=== PATIENT | male | born 1945 | race Caucasian/White ===

== ENCOUNTER 2019-04-27 08:50 | Outpatient (CLI) | payer MEDICARE, BC, SELFPAY ==
--- NOTE | 2019-04-27 11:00 | CT_ITS ---
WS: [id number] CT ABDOMEN AND PELVIS NONCONTRAST HISTORY: VENTRAL HERNIA TECHNIQUE: Imaging performed through the abdomen and pelvis. Coronal and sagittal reformats are submi tted. All CT scans at [facility] use at least one of these dose optimization techniques: automated exposure control; mA and/or kV adjustment per patient size (includes targeted exams where d ose is matched to clinical indication); or iterative reconstruction. DLP: 1204.16 mGycm COMPARISON: None available. Lower thorax: Benign granuloma at the RIGHT lung base. Heart size is normal. Moderate size hiatal her tanvi. Liver: Mild hepatic steatosis. No mass or bile duct dilatation. Gallbladder: Status post cholecystectomy. Pancreas: Normal. Spleen: Normal. Adrenal glands: Normal. Right kidney: Mild perinephric stranding. Increased renal sinus fat. No mass or obstruction. Left kidney: Mild perinephric stranding. Both circumscribed mass measures 2.7 x 3.1 cm from the lower pole consistent with a cyst. Increase in the sinus fat of the kidney. No obstruction. Mild atherosclerosis with no aneurysm. No free fluid, intraperitoneal air or significant lymphadenopathy. GI tract: Postsurgical changes of gastric bypass. No GI tract obstruction. The appendix is normal. Th ere are a few scattered diverticula in the sigmoid colon with no acute diverticulitis. Abdominal wall: Ventral abdominal wall hernia measures 3.5 cm. Hernia contains fat only. Pelvis: Inguinal canals are patent bilaterally containing fat only. No free fluid or adenopathy in th e pelvis. Very slightly heterogeneous prostate gland with no enlargement. Normal urinary bladder. Osseous structures: Mild narrowing of the SI joints. CT/CT abdomen pelvis wo con [id number] IMPRESSION: 1. Small fat-containing umbilical hernia. 2. Atherosclerosis aorta. 3. Prior cholecystectomy. 4. Small hiatal hernia. 5. Prior gastric bypass.
== END 2019-04-27 08:51 | disposition home or self-care (01) ==
LOC: RADWPI 09:05
PROVIDERS: Family Provider Physician Assistant; PCP Student in an Organized Health Care Education/Training Program; Visit Provider Surgery
DX: K43.9 Ventral hernia without obstruction or gangrene (principal); I70.0 Atherosclerosis of aorta; K44.9 Diaphragmatic hernia without obstruction or gangrene; Z98.84 Bariatric surgery status
CPT/HCPCS: 74176

== ENCOUNTER → 2020-11-15 11:08 | Outpatient (BNVA) | payer MEDICARE, BC, SELFPAY | PROVIDERS: Family Provider Physician Assistant; PCP Student in an Organized Health Care Education/Training Program; Visit Provider Surgery | DX: Z20.822 Contact with and (suspected) exposure to COVID-19 (principal); K43.9 Ventral hernia without obstruction or gangrene | CPT/HCPCS: 87635 ==

== ENCOUNTER 2020-11-19 06:38 | Day surgery (SDC) | payer MEDICARE, BC, SELFPAY ==
[2020-11-18 14:51] VITALS: BMI 34.0
[2020-11-19] VITALS (11 sets, daily range): BP systolic 135–165; BP diastolic 76–101; PULSE 83–106; RESP 14–21; TEMP 36.4–36.6; O2SAT 90–97
[2020-11-19] MEDS: acetaminophen 1,000 MG/100 ML PIGGYBACK 400 MG IV (07:10)
[2020-11-19] MEDS: sodium chloride 0.9% 1,000 ML 30 ML IV (07:10)
[2020-11-19] MEDS: heparin 5,000 unit/mL INJ 1 mL 3000 UNIT SUBCUT (07:25)
--- NOTE | 2020-11-19 07:30 | ANES.PREANE2 ---
Pre-Anesthetic Assessment Pre-Anesthetic Assessment: Height/Weight: Height 1.88 m Weight 120.202 kg Temp Pulse Resp BP Pulse Ox 97.6 F 88 18 146/78 97 11/19/20 06:55 11/19/20 06:55 11/19/20 06:55 11/19/20 06:55 11/19/20 06:55 Preop Diagnosis: Ventral incisional hernia Proposed Procedure: Operation Date: 11/19/20 08:15 Proposed Procedures p Laparoscopic Ventral Hernia Repair w/ Mesh 35281 K43.9(Not Applicable) - Yasir Lao MD Was Beta Kade taken within 24 hours: N/A Was Clonidine taken within 24 hours: N/A Last intake: Intake Last Liquid Date 11/18/20 Last Liquid Time 22:00 Last Solid Date 11/18/20 Last Solid Time 18:30 Social: Social History: No alcohol and No tobacco Exam: Pre-Anes Outpt Exam: alert, oriented x 3, clear to auscultation bilaterally and regular rate & rhythm Airway: Submandibular: WNL Cervical ROM: WNL MP: 3 Dentition: Full GI: GI: GERD Metabolic: Metabolic: DM, Hyperlipidemia and Morbid obesity Anesthetic Plan: ASA status: 3 Anesthesia: General Risk of > 500 ml blood loss (7ml/kg in children): No PFSH Anesthesia PFSH: Medical History GERD (gastroesophageal reflux disease) Obesity Osteoarthritis Umbilical hernia Surgical History History of Maci-en-Y gastric bypass (~2018) Family History Denies family history of Anesthesia complication Bleeding disorder Social History Smoking and tobacco status: never smoked Second hand smoke exposure: No Alcohol intake: never Adopted: No Caregiver/support person: Yes Lives independently: Yes Household members: none Housing: House Marital status: Single Highest education level completed: High School Graduate service: No Current occupational status: retired Current occupational exposures/hazards: No Pets and animals: Yes Pets & animals: dog(s) History of recent travel: No Sexually active: No Current gender identity: Male Orin/Rastafari: Islam Special orin needs: No Agree to transfusion: No Financial difficulty paying for basics: Decline to Answer Data Anesthesia Cardiac Studies: No Data to Display
[2020-11-19 07:31] LABS: Glucose Point of Care 118 mg/dL (70-110)
--- NOTE | 2020-11-19 07:41 | W.PM.OPSFHP ---
Same Day Surgery H&P Indication for Procedure/HPI DATE OF PROCEDURE: November 19, 2020 CHIEF COMPLAINT/INDICATIONFOR SURGICAL PROCEDURE: My hernia is bothering PREOP DIAGNOSIS: Ventral incisional hernia PLANNED PROCEDRUE: Operation Date: 11/19/20 08:15 Proposed Procedures p Laparoscopic Ventral Hernia Repair w/ Mesh 18361 K43.9(Not Applicable) - Yasir Lao MD This is a pleasant 75 years old gentleman well-known to me from previous clinical encounters as he has been having worsening symptoms with his ventral incisional hernia. He did postpone his surgery before because of COVID-19 and now is willing to proceed accordingly. Is a status post laparoscopic Maci-en-Y gastric bypass that was done years ago in [place]. Prior CT scan of the abdomen pelvis was done in March 2019 that showed 1. Small fat-containing umbilical hernia. 2. Atherosclerosis aorta. 3. Prior cholecystectomy. 4. Small hiatal hernia. 5. Prior gastric bypass. Interim history 11/19/2020 Patient comes today for elective laparoscopic ventral hernia repair with mesh placement ROS All systems have been reviewed negative except as per the above or per problem list Medications/Allergies* Home Medications Medication Instructions Recorded Confirmed Type lovastatin 10 mg tablet 10 mg PO QDAY 04/17/19 11/19/20 History omeprazole 40 mg capsule,delayed 40 mg PO QDAY 04/17/19 11/19/20 History release metformin 500 mg PO DAILY 11/18/20 11/19/20 History Allergies/Adverse Reactions Allergy/AdvReac Type Severity Reaction Status Date / Time NSAIDS (Non-Steroidal Allergy Unknown Unknown Verified 11/19/20 07:49 Anti-Inflamma contrast media Allergy Unknown Unknown Uncoded 11/19/20 07:49 Pertinent History/Comorbid Conditions* Medical History (Updated 10/16/19 @ 10:50 by Yasir Lao MD) GERD (gastroesophageal reflux disease) Obesity Osteoarthritis Umbilical hernia Surgical History (Updated 05/17/19 @ 16:13 by Yaisr Lao MD) History of Maic-en-Y gastric bypass (~2017) Family History (Updated 04/14/19 @ 15:20 by Zakiya Alexandra RN) Denies family history of Anesthesia complication Bleeding disorder Social History Smoking and tobacco status: never smoked Second hand smoke exposure: No Alcohol intake: never Adopted: No Caregiver/support person: Yes Lives independently: Yes Household members: none Housing: House Marital status: Single Highest education level completed: High School Graduate service: No Current occupational status: retired Current occupational exposures/hazards: No Pets and animals: Yes Pets & animals: dog(s) History of recent travel: No Sexually active: No Current gender identity: Male Orin/Pentecostalism: Adventism Special orin needs: No Agree to transfusion: No Financial difficulty paying for basics: Decline to Answer Pertinent Exam Findings alert, oriented x 3, clear to auscultation bilaterally, regular rate & rhythm and procedure specific exam findings (Partially reducible ventral incisional hernia otherwise abdominal exam is u) Abdominal examination is unremarkable apart from the ventral incisional hernia Recommendations Surgery/Procedure today (Laparoscopic ventral incisional hernia repair with mesh possible open) Coding Level of Care Code Acute Sensor Specialist for Kenan Mccullough
[2020-11-19] MEDS: ceFAZolin 3,000 MG in sodium chloride 0.9% (100 ml) 100 ML 200 MG IV (07:59)
--- NOTE | 2020-11-19 09:45 | PM.OP ---
Operative Report Date of procedure: November 19, 2020 Pre-op Diagnosis: Ventral incisional hernia Post-op diagnosis: same Post-op Diagnosis: Periumbilical fascial defect 5 x 5 cm Post-op Findings: Fascial defect 5 x 5 cm at the periumbilical area Fascia noticed to be very attenuated Procedure Done: Laparoscopic ventral incisional hernia repair with mesh placement Implants: 15 x 15 cm ventral light mesh using echo system Surgeon: Yasir Lao Web Site Developer: Surgical techs Jeaneth Alvarez Circulating nurse Naomie Walls Estimated blood loss (mL): 15 IV fluids (mL): 750 Urine output (mL): 150 Condition: stable Disposition: same day Brief History: Symptomatic ventral incisional hernia Procedure: Patient was brought to the operating room after appropriate preoperative identification at the holding area. Was placed in supine position, Martin catheter was administered by myself revealing clear urine. General endotracheal anesthesia was administered the patient was intubated without incident. Timeout was done verifying the patient's name/date of /planned procedure and destination after the procedure, all were in agreement. SCDs confirmed to be functioning, preoperative antibiotics administered per protocol and heparin subcutaneous on-call to the OR, and beta rashmi protocol was confirmed, appropriate positioning of the patient was done by me.Patient was secured appropriately to the table and all pressure points were padded. Both arms were tucked. Prep and drape of the abdomen was done under the usual sterile technique. After Injection of Exparel An incision was made in the left upper subcostal margin along the left anterior axillary line of the abdomen , 5 mm Opti-Vu trocar was used with a 0 scope 5 mm under direct visualization safe entrance to the abdomen was achieved and all through abdominal wall layers. The abdomen was insufflated to 15 mmHg at 40 L/m , abdomen was surveyed showing no signs of injuries yet there were extensive intra-abdominal adhesions towards the midline, followed by placement of 12 mm trocar under direct visualization about a handbreadth inferior to first trocar, followed by another 5 mm trocar inserted 1 handbreadth inferior to the 10 mm trocar. Omental adhesions were carefully lysed using monopolar energy, fascial defect measured about 5 cm in diameter, at this point I decided to apply [id number] PDS sutures using the fascial closure device to approximate the edges of the defect. Closure was done while the pressure was dropped to 12 mm HG. At that point the Bard system ventral light ST mesh with echo positioning system was then decided upon having about 5 cm overlap from the fascial defect edge. Diameter of the mesh was about 15 cm. The mesh was rolled the and introduced through the 12 mm trocar, using a fascial closure device that was introduced through the center of the defect percutaneously, the Ethibond suture connected to the Echo system, was then brought ex vivo, the suture was then pulled towards the ceiling, and brought the mesh onto the fascial defect. At this point the mesh was adjusted found to be in a good position with good overlap, no trans-fascial sutures were used at this point, an absorbable Tack fixation device, performing a single crown technique to secure the mesh in place, after the first line of tacks were applied the skeleton and frame of the Echo system was brought out from the 12 mm trocar site , and the second row of tacks were applied to have a double crown configuration. Hemostasis was secured, there was some evidence of bleeding at the north part of the mesh so I elected to put a figure of 8 laparoscopic placed 2-0 silk stitch for hemostasis, the mesh appears to be in good position and well spread without crumbling. Bilateral TAP (transversus abdominous plain peripheral nerve block )block using Exparel 20 mL Exparel 40 ml Normal saline 20 ml bupivacaine 0.25% 30 mL on each side injected 20 mL injected the port sites Closure of the 12 mm trocar site, using interrupted V PDS sutures under direct visualization. Final look laparoscopy showed no bleeding or injury or succus. Trocars were then taken out under direct visualization and gas was allowed to escape.followed by subcuticular closure for all trocar sites, including the fascial closure device site at the center of the fascial defect, Dermabond about was applied. Martin catheter was taken out Patient tolerated the procedure well, and an abdominal binder was then wrapped around the patient's abdomen. The patient was then extubated and taken to the recovery room in stable condition All count of instruments and sponges were completed I Was present for the whole entire procedure
--- NOTE | 2020-11-19 10:03 | PM.PACU ---
PACU note PACU note: VSS, Good respiratory effort, report to COMMUNITY ASSISTANT Post-Anesthesia Exam: awake
--- NOTE | 2020-11-19 10:03 | P.PCN_ITS ---
PACU note PACU note: VSS, Good respiratory effort, report to RODEO PERFORMER Post-Anesthesia Exam: awake
[2020-11-19] MEDS: HYDROcodone-acetaminophen 5-325 mg Tablet 1 TAB PO (11:17)
--- NOTE | 2020-11-19 15:59 | ANE.PACU2 ---
Inpatient post-anesthesia follow up: Airway intact: Yes Vital signs: Temperature 97.7 F Pulse Rate 83 Respiratory Rate 16 Blood Pressure 151/91 Pulse Oximetry 97 Oxygen Delivery Me thod Room Air Oxygen Flow Rate 8 Fraction of Inspir ed Oxygen Hydration adequate: Yes Nausea and vomiting: No Pain level: 2 Mental status: Baseline
== END 2020-11-19 11:40 | disposition home or self-care (01) ==
PROVIDERS: PCP Family Medicine; Visit Provider Surgery
PROC: 0WQF4ZZ Repair Abdominal Wall, Percutaneous Endoscopic Approach (ICD-10-PCS; CPT 49654; principal; 2020-11-19 08:05)
DX: K43.2 Incisional hernia without obstruction or gangrene (principal); K21.9 Gastro-esophageal reflux disease without esophagitis; E66.01 Morbid (severe) obesity due to excess calories; Z68.34 Body mass index [BMI] 34.0-34.9, adult; M19.90 Unspecified osteoarthritis, unspecified site; E11.9 Type 2 diabetes mellitus without complications; Z79.84 Long term (current) use of oral hypoglycemic drugs
CPT/HCPCS: 49654; 36416; 82962; 96365; C9290; J0690; J1100; J1644; J2405; J2704; J2710; J3010; J3490; J7030

== ENCOUNTER → 2023-03-09 13:44 | Outpatient (BNVA) | payer MEDICARE, BC, SELFPAY | PROVIDERS: PCP Family Medicine; Visit Provider Podiatrist Foot & Ankle Surgery | DX: L60.0 Ingrowing nail (principal) | CPT/HCPCS: 99203 ==

== ENCOUNTER → 2023-03-16 15:06 | Outpatient (BNVA) | payer MEDICARE, BC, SELFPAY | PROVIDERS: PCP Family Medicine; Visit Provider Podiatrist Foot & Ankle Surgery | DX: L60.0 Ingrowing nail (principal) | CPT/HCPCS: 11750; A6219 ==

== ENCOUNTER → 2023-03-30 09:56 | Outpatient (BNVA) | payer MEDICARE, BC, SELFPAY | PROVIDERS: PCP Family Medicine; Visit Provider Podiatrist Foot & Ankle Surgery | DX: L60.0 Ingrowing nail (principal) | CPT/HCPCS: 99213 ==

== ENCOUNTER → 2024-07-12 14:48 | Outpatient (BNVA) | payer MEDICARE, BC, SELFPAY | PROVIDERS: PCP Pediatrics Pediatric Allergy/Immunology; Visit Provider Internal Medicine | DX: R07.9 Chest pain, unspecified (principal) | CPT/HCPCS: 93005 ==

== ENCOUNTER → 2024-09-12 13:47 | Outpatient (BNVA) | payer MEDICARE, BC, SELFPAY | PROVIDERS: PCP Pediatrics Pediatric Allergy/Immunology; Visit Provider Internal Medicine | DX: I48.91 Unspecified atrial fibrillation (principal) | CPT/HCPCS: 99213 ==